=== PATIENT | female | born 1935 | race Caucasian/White ===

== ENCOUNTER 2017-05-13 08:03 | Inpatient (IN) | payer MEDICARE, OTHER ==
[~2017-05-13] VITALS: Ht 124.5 cm; Wt 55.0 kg
[2017-05-13] VITALS (8 sets, daily range): BP systolic 98–204; BP diastolic 54–86; PULSE 69–73; RESP 18; Ht 124.5 cm; Wt 55.0 kg
[~2017-05-13 08:03] MED LIST: ATOR40TA21 PO; CLOP75TA19 PO; DID NOT BRING MEDS; ESCI10TA PO; FENO135C3 PO; FERR-55 PO; GLIM4TAB55 PO; MONT10TA21 PO; NABU-137 PO
[2017-05-13] MEDS ORDERED: DEXTROSE 50% 50 ML SYRINGE IV STA ×2 (08:05→09:50)
[2017-05-13] MEDS ORDERED: OCTREOTIDE 50 MCG INJ SC STA (08:12)
--- NOTE | 2017-05-13 08:51 | RADRPT ---
PROCEDURE: CT Brain without contrast. CLINICAL INDICATION: Altered mental status TECHNIQUE: Routine CT scan of the brain was performed on a high resolution multi detector scanner without intravenous contrast. One or more of the following dose reduction techniques were used: Auto mated exposure control; Adjustment of the mA and/or kV according to patient size; Use of iterative r econstruction technique. CTDI = 44 mGy. DLP = 630 mGy-cm. DICOM images are available. COMPARISON: No prior relevant examinations are available for comparison. FINDINGS: Hemorrhage: No evidence of intracranial hemorrhage. Acute ischemic changes: No evidence of acute ischemic changes. Mass effect: None. Parenchymal volume: Mild central parenchymal volume loss is evident. Ventricular system: Concordant with parenchymal volume. Chronic changes: There are multiple areas of low attenuation change within the supratentorial white matter most compatible with moderate chronic microvascular ischemic changes. Atherosclerotic calcifications of the cavernous portions of both internal carotid arteries are prese nt. Extracranial soft tissues: Unremarkable. Calvarium: No fractures. Paranasal sinuses: Visualized paranasal sinuses are clear. Mastoid air cells: Visualized mastoid air cells are clear. IMPRESSION: No acute intracranial abnormalities. Moderate chronic-appearing microvascular ischemic changes of the supratentorial white matter. MRI of the brain recommended for further evaluation. RPTAT: AADD .Librado Burns MD, MD Date Time Electronically viewed and signed by .Librado Burns MD, MD on 05/13/2017 08:51 .B/
--- NOTE | 2017-05-13 09:18 | RADRPT ---
PROCEDURE: XR Chest. CLINICAL INDICATION: Dyspnea. TECHNIQUE: XR CHEST AP PORTABLE COMPARISON: None available. FINDINGS: The interstitial lung markings are mildly diffusely prominent. Otherwise, the are clear. No focal o pacification is seen. No pneumothorax or pleural effusion is seen. Aortic atherosclerotic calcific ations are present. Otherwise, the cardiomediastinal silhouette is unremarkable. Chronic displaced fracture of the proximal left humeral shaft is noted. Otherwise, the osseous structures are grossly unremarkable. IMPRESSION: 1. Diffusely prominent interstitial lung markings, may represent mild edema, atypical infection, or chronic interstitial lung change. 2. Aortic atherosclerosis. RPTAT: JJ .Wong Foster MD, MD Date Time Electronically viewed and signed by .Wong Foster MD, on 05/13/2017 09:17 .A/
[2017-05-13] MEDS ORDERED: ROSU5TAB8 PO (09:29)
[2017-05-13] MEDS ORDERED: LORA0.5T PO (09:30)
[2017-05-13] MEDS ORDERED: AMLO5TAB4 PO (09:30)
[2017-05-13] MEDS ORDERED: METO-429 PO (09:31)
[2017-05-13] MEDS ORDERED: LOSA50TA6 PO (09:31)
[2017-05-13] MEDS ORDERED: SITA1TAB5 PO (09:32)
[2017-05-13] MEDS ORDERED: INSU100I31 SUBCUTANE (09:32)
[2017-05-13] MEDS ORDERED: DEXTROSE 5%-0.9% NACL 1,000 ML IV STA (09:50)
[2017-05-13 10:13] LABS: ADD UMIC YES; UR ASCORBIC ACID NEGATIVE (NEGATIVE); UR BILIRUBIN (Dip) NEGATIVE (NEGATIVE); UR BLOOD (Dip) NEGATIVE (NEGATIVE); UR CLARITY CLEAR (CLEAR); UR COLOR STRAW (YELLOW); UR GLUCOSE (Dip) NEGATIVE (NEGATIVE); UR KETONES (Dip) NEGATIVE (NEGATIVE); UR LEUKOCYTE ESTERASE (Dip) 1+ Leu/ul (NEGATIVE); UR NITRITE (Dip) NEGATIVE (NEGATIVE); UR RBC 1 /HPF (0-5); UR SPECIFIC GRAVITY (Dip) 1.005 (1.003-1.030); UR SQUAMOUS EPITHELIAL CELL FEW /HPF (FEW); UR TOTAL PROTEIN (Dip) 1+ mg/dl (NEGATIVE); UR UROBILINOGEN (Dip) NEGATIVE (NEGATIVE)
[2017-05-13 11:54] LABS: BASOPHIL # 0.1 10^3/ul (0.0-0.1); BASOPHILS % 0.4 % (0.0-2.0); EOSINOPHILS # 0.1 10^3/ul (0.0-0.5); EOSINOPHILS % 0.7 % (0.0-7.0); HEMATOCRIT 37.9 % (37.0-47.0); HEMOGLOBIN 12.8 g/dl (12.0-16.0); LYMPHOCYTES % 20.1 % (15.0-51.0); MEAN CORPUSCULAR HEMOGLOBIN 28.6 pg (29.0-33.0); MEAN CORPUSCULAR HGB CONC 33.8 g/dl (32.0-37.0); MEAN CORPUSCULAR VOLUME 84.6 fl (82.0-101.0); MEAN PLATELET VOLUME 10.5 fl (7.4-10.4); MONOCYTE # 0.6 10^3/ul (0.3-0.9); MONOCYTES % 3.7 % (0.0-11.0); NEUTROPHIL # 11.1 10^3/ul (1.6-7.5); NEUTROPHILS % 74.7 % (39.0-77.0); PLATELET COUNT 330 10^3/UL (140-415); RED BLOOD COUNT 4.48 10^6/ul (4.20-5.40); RED CELL DISTRIBUTION WIDTH 14.6 % (11.5-14.5); WHITE BLOOD COUNT 14.8 10^3/ul (4.8-10.8)
[2017-05-13 12:17] LABS: ANION GAP 17 (8-16); BLOOD UREA NITROGEN 29 mg/dl (7-20); CALCIUM 9.7 mg/dl (8.4-10.2); CARBON DIOXIDE 26 mmol/L (21-31); CHLORIDE 95 mmol/L (97-110); CREATININE 1.16 mg/dl (0.44-1.00); GLUCOSE 170 mg/dl (70-220); POTASSIUM 5.3 mmol/L (3.5-5.1); SODIUM 133 mmol/L (135-144)
[2017-05-13] MEDS ORDERED: ACETAMINOPHEN 325 MG TAB PO PRN (12:30)
[2017-05-13] MEDS ORDERED: ONDANSETRON 4 MG INJ IV PRN (12:30)
[2017-05-13 12:32] LABS: TROPONIN-I < 0.012 ng/ml (0.00-0.12)
[2017-05-13 12:35] LABS: T3 UPTAKE 30.5 % (23.5-40.5)
--- NOTE | 2017-05-13 14:33 | ERD ---
ER Documentation Chief Complaint Chief Complaint BIB RA 39 FOR EVAL OF HYPOGLYCEMIA GLUCAGON BY EMS HPI This is an 81-year-old female, who lives alone, history of insulin dependent diabetes who presents with hypoglycemia and altered mental status. She was altered upon EMS arrival with glucose in the 30s. She did not get access and was given glucagon with response. Upon arrival the patient is alert and conversive. The patient has a history of dementia and does not know her medications. Her son arrives and states that she does live alone but has a home health care provider until 8 PM every day. He states that she does not give herself her medications but there are some medications in the home. Patient denies any chest pain shortness of breath. No fevers or chills. ROS All systems reviewed and are negative except as per history of present illness. Medications Home Meds Reported Medications Sitagliptin Phos/Metformin HCl (Janumet 50-1,000 mg Tablet) 1 Each Tablet, 1 TAB PO BID, #60 05/13/17 Insulin Degludec (Tresiba Flextouch U-100) 100 Unit/1 Ml Insuln.pen, 0 SUBCUTANE AC BREAKFAST, #15 05/13/17 Losartan Potassium* (Losartan Potassium*) 50 Mg Tablet, 50 MG PO DAILY, TAB 05/13/17 Metoprolol Tartrate* (Lopressor*) 50 Mg Tab, 50 MG PO BID, #60 05/13/17 Amlodipine Besylate* (Norvasc*) 5 Mg Tablet, 5 MG PO DAILY, TAB 05/13/17 Lorazepam* (Lorazepam*) 0.5 Mg Tablet, 0.5 MG PO DAILY for ANXIETY, #30 05/13/17 Rosuvastatin Calcium (Rosuvastatin Calcium) 5 Mg Tablet, 5 MG PO QHS, #30 17 Clopidogrel Bisulfate (Plavix) 75 Mg Tablet, 75 MG PO DAILY 02/06/11 Escitalopram Oxalate* (Lexapro*) 10 Mg Tablet, 10 MG PO DAILY 02/06/11 Discontinued Reported Medications Glimepiride* (Amaryl*) 4 Mg Tablet, 4 MG PO DAILY 02/06/11 Montelukast Sodium* (Singulair*) 10 Mg Tablet, 10 MG PO DAILY 02/06/11 Atorvastatin (Lipitor) 40 Mg Tablet, 40 MG PO DAILY 02/06/11 Nabumetone* (Relafen*) 750 Mg Tablet, 750 MG PO BID 02/06/11 Ferrous Sulfate* (Ferrous Sulfate*) 325 Mg Tablet, 325 MG PO TID 02/06/11 Fenofibric Acid (Choline) (Trilipix) 135 Mg Capsule.dr, 135 MG PO DAILY 02/06/11 [Did Not Bring Meds] No Conflict Check 02/06/11 Allergies Allergies: Coded Allergies: No Known Allergy (Verified , 05/13/17) PMhx/Soc History of Surgery: No Anesthesia Reaction: No Hx Neurological Disorder: No Hx Respiratory Disorders: No Hx Cardiac Disorders: No Hx Psychiatric Problems: No Hx Miscellaneous Medical Probl: Yes (UTI, DM, hnt) Hx Alcohol Use: No Hx Substance Use: No Hx Tobacco Use: No Smoking Status: Never smoker FmHx Family History: diabetes Physical Exam Vitals Vital Signs Date Time Temp Pulse Resp B/P Pulse Ox O2 Delivery O2 Flow Rate FiO2 05/13/17 11:51 73 32 165/62 100 Room Air 05/13/17 08:06 97.9 88 16 170/80 99 Physical Exam General: Well developed, well nourished, no acute distress Head: Normocephalic, atraumatic. Eyes: Pupils equally reactive, EOM intact ENT: Moist mucous membranes Neck: Supple, no lymphadenopathy Respiratory: Lungs clear bilaterally, no distress Cardiovascular: RRR, no murmurs, rubs, or gallops Abdominal: Soft, non-tender, non-distended, no peritoneal signs : Deferred MSK: No edema, no unilateral swelling, 5/5 strength Neurologic: Alert and oriented, moving all extremities, normal speech, no focal weakness, no cerebellar signs Skin: No rash Psych: Normal mood Result Diagram: 05/13/17 1109 05/13/17 1110 Results 24 hrs Laboratory Tests Test 05/13/17 08:09 05/13/17 09:38 05/13/17 09:45 05/13/17 10:45 Bedside Glucose 64mg/dL 50mg/dL 178mg/dL Urine Color STRAW Urine Clarity CLEAR Urine pH 7.0 Urine Specific [place] 1.005 Urine Ketones NEGATIVEmg/dL Urine Nitrite NEGATIVEmg/dL Urine Bilirubin NEGATIVEmg/dL Urine Urobilinogen NEGATIVEmg/dL Urine Leukocyte Esterase 1+Randi/ul Urine Microscopic RBC 1/HPF Urine Microscopic WBC 17/HPF Urine Squamous Epithelial Cells FEW/HPF Urine Hemoglobin NEGATIVEmg/dL Urine Glucose NEGATIVEmg/dL Urine Total Protein 1+mg/dl Test 05/13/17 11:09 05/13/17 11:10 05/13/17 12:07 White Blood Count 14.810^3/ul Red Blood Count 4.4810^6/ul Hemoglobin 12.8g/dl Hematocrit 37.9% Mean Corpuscular Volume 84.6fl Mean Corpuscular Hemoglobin 28.6pg Mean Corpuscular Hemoglobin Concent 33.8g/dl Red Cell Distribution Width 14.6% Platelet Count 14539^3/UL Mean Platelet Volume 10.5fl Neutrophils % 74.7% Lymphocytes % 20.1% Monocytes % 3.7% Eosinophils % 0.7% Basophils % 0.4% Nucleated Red Blood Cells % 0.0/100WBC Neutrophils # 11.110^3/ul Lymphocytes # 3.010^3/ul Monocytes # 0.610^3/ul Eosinophils # 0.110^3/ul Basophils # 0.110^3/ul Nucleated Red Blood Cells # 0.010^3/ul Sodium Level 133mmol/L Potassium Level 5.3mmol/L Chloride Level 95mmol/L Carbon Dioxide Level 26mmol/L Anion Gap 17 Blood Urea Nitrogen 29mg/dl Creatinine 1.16mg/dl Glucose Level 170mg/dl Calcium Level 9.7mg/dl Troponin I < 0.012ng/ml Free Thyroxine Index 2.14ug/ml Thyroxine (T4) 7.0ug/dl Triiodothyronine (T3) Uptake 30.5% Bedside Glucose 156mg/dL Current Medications Medications (Trade) Dose Ordered Sig/Krystina Route PRN Reason Start Time Stop Time Status Last Admin Dose Admin Dextrose (D50w Syringe) 50 ml ONCE STAT IV 05/13/17 08:05 05/13/17 08:12 DC 05/13/17 10:02 Octreotide Acetate (Sandostatin) 50 mcg ONCE STAT SC 05/13/17 08:12 05/13/17 08:13 DC 05/13/17 10:17 Dextrose 50 ml 50 ml ONCE STAT IV 05/13/17 09:50 05/13/17 09:52 DC 05/13/17 10:06 Dextrose/Sodium Chloride (D5-NS) 1,000 ml @ 200 mls/hr Q5H STAT IV 05/13/17 09:50 05/13/17 14:49 05/13/17 10:06 Ondansetron HCl (Zofran Inj) 4 mg ER BRIDGE PRN IV NAUSEA AND/OR VOMITING 05/13/17 12:30 05/14/17 12:29 Acetaminophen (Tylenol Tab) 650 mg ER BRIDGE PRN PO MILD PAIN/FEVER 05/13/17 12:30 05/14/17 12:29 Procedures/MDM EKG, MONITORS, & DIAGNOSTIC IMAGING: EKG: I reviewed and interpreted a 12-lead EKG. Rhythm: Normal sinus rhythm Ectopy: None Intervals: No abnormalities ST segments: No elevations or depressions T waves: No contiguous inversions Chest x-ray: I reviewed and interpreted a 1 view of the chest Mediastinum: No enlargement Cardiac silhouette: No cardiomegaly Airspace: Clear lung mejia bilaterally without evidence of pneumothorax Bones: No evidence of fracture CT brain: No evidence of acute intracranial process per radiologist LAB INTERPRETATION: Slight and nonspecific leukocytosis, normal hemoglobin, the patient has multiple episodes of hypoglycemia, mild renal insufficiency, mild hyperkalemia 5.3 without EKG changes, negative troponin MEDICAL DECISION MAKING: The patient presents with hypoglycemia that is idiopathic. The patient may have a potential UTI and was given Keflex. No evidence of sepsis. The patient had multiple episodes of slight hypoglycemia despite given dextrose in the ER. For this reason I would recommend hospitalization. ER COURSE: Patient had persistent hypoglycemia. She was given 2 Amp of dextrose and initiated on dextrose infusion. She was given octreotide given that she takes a sulfonylurea. She does have evidence of mild UTI and was given Keflex. Regardless, the patient has returned to baseline and is mentating well. The patient has had stable glucose values and I believe is stable for telemetry with every 2 hour glucose values. She was given a complex carbohydrate meal. I kept the patient and/or family informed of laboratory and diagnostic imaging results throughout the emergency room course. DISPOSITION PLAN: Telemetry admission CONSULTATION: Accepting care team and consultations: I discussed the current laboratory data, diagnostic imaging and emergency care provided. Admitting team: Dr. Franklin, primary care physician Admitting team indication: Insurance directed Departure Diagnosis: Primary Impression: Hypoglycemia Additional Impressions: Acute encephalopathy Urinary tract infection Urinary tract infection type: acute cystitis Hematuria presence: without hematuria Qualified Code: N30.00 - Acute cystitis without hematuria Acute renal insufficiency Condition: Stable LUDY BURKETT MD May 13, 2017 14:33
[2017-05-13] MEDS ORDERED: CEPHALEXIN 500 MG CAP PO ONE (15:00)
[2017-05-13] MEDS ORDERED: D5-NS + KCL 20 MEQ 1,000 ML IV SCH (17:00)
[2017-05-13] MEDS ORDERED: DEXTROSE 5%-0.9% NACL 1,000 ML IV SCH (17:30)
[2017-05-13] MEDS ORDERED: DEXTROSE 50% 50 ML SYRINGE IV PRN ×2 (17:30)
[2017-05-13] MEDS ORDERED: GLUCAGON 1 MG INJ IM PRN (17:30)
[2017-05-13] MEDS ORDERED: GLUCOSE GEL 15 GRAM TUBE BUCCAL PRN (17:30)
[2017-05-13] MEDS ORDERED: GLUCOSE GEL 15 GRAM TUBE PO PRN ×2 (17:30)
[2017-05-13] MEDS: CLOPIDOGREL 75 MG TAB PO SCH (17:55)
[2017-05-13] MEDS: LOSARTAN 50 MG TAB PO SCH (17:56)
[2017-05-13] MEDS: ESCITALOPRAM 10 MG TAB PO SCH (17:56)
[2017-05-13] MEDS: LORAZEPAM 0.5 MG TAB PO SCH (17:56)
[2017-05-13] MEDS: INSULIN ASPART [NOVOLOG] 3 ML PEN SC SCH ×2 (18:05→20:56)
--- NOTE | 2017-05-13 19:54 | HP ---
DATE OF ADMISSION: 05/13/2017 HISTORY OF PRESENT ILLNESS: The patient was admitted for acute hypoglycemia, hyperkalemia and dehyd ration. The patient is a known patient to me for many years with history of type 2 diabetes mellitu s, hypertension, degenerative joint disease, encephalopathy, dyslipidemia and advanced dementia. MEDICATIONS: The patient is on multiple medications at home which are as follows: 1. Plavix 75 once a day. 2. Amlodipine 5 once a day. 3. Losartan 50 twice a day. 4. Metoprolol 50 twice a day. 5. Rosuvastatin 5 mg once a day. The patient usually is home alone with a caregiver, and she goes to a daycare. Apparently, today carolina weir had low levels of blood sugar, altered and that is why she was brought into the emergency room. ALLERGIES: THE PATIENT HAS NO KNOWN ALLERGIES. PAST SURGICAL HISTORY: Unknown to me at this time or no surgical history. REVIEW OF SYSTEMS: The patient is confused, unable to get much information from the patient. When you ask her, everything is okay with her, but according to the emergency room doctor, the patient ca me hypoglycemic, had to give a few times dextrose and her blood sugar levels are much better now, so she was brought in to [facility] for observation. PHYSICAL EXAMINATION: VITAL SIGNS: Blood pressure at this time is 165/62, heart rate is 72, respiratory rate 18. She is afebrile. HEENT: Head is atraumatic, normocephalic. Pupils are equal and reactive to light. Extraocular mus cles are intact. Nares are clear. No obstruction, no deviation of the septum. Oral cavity: Hermila l oral hygiene. Ear canals are clear. No signs of inflammation or infection. Tympanic membranes a re intact. NECK: Supple. No JVD. No surgical scars. No lymph nodes palpable over the neck. CHEST: AP contour is within normal limits. BREASTS: Breasts and nipples are normal. No nipple retraction. HEART: S1, S2, regular rate and rhythm with a systolic murmur over the apex. LUNGS: Clear to auscultation. Very mild scattered rhonchi over the lungs. Poor effort. ABDOMEN: Soft, positive bowel sounds, no hepatosplenomegaly, no masses palpable over the abdomen an d no rebound tenderness. EXTREMITIES: No edema, clubbing or cyanosis of the extremities. Pulses are palpable. NEUROLOGIC: Cranial nerves II-XII are completely intact. No focal deficits. ADMITTING DIAGNOSES: 1. Hypoglycemia. 2. Hyponatremia. 3. Hyperkalemia. 4. Possible urinary tract infection. 5. Mild dehydration. PLAN: The patient will be admitted to [facility]. Will start her on IV fluid. Monitor the blood sugars. Her most recent lab results: Sodium is 133, which is her baseline, potassium 5.3, a little elevat ed, BUN is 29, creatinine 1.16 and glucose at this time is 170. CBC: White blood cells 14.8, hemog lobin 12.8, hematocrit 37.9 and platelet count 330. Urine is negative at this time. Therefore, we will start the patient on IV fluid and will monitor. Dictated By: RONDA MCALLISTER MD SB/NTS Conf#: [id number] DID#: [id number] CC: RONDA MCALLISTER MD;*EndCC*
[2017-05-13] MEDS ORDERED: ATORVASTATIN 10 MG TAB GTB SCH (21:00)
[2017-05-13] MEDS: METOPROLOL 50 MG TAB PO SCH (22:28)
[2017-05-14] VITALS (7 sets, daily range): BP systolic 92–135; BP diastolic 50–62; PULSE 59–64; RESP 18–19
[2017-05-14] MEDS ORDERED: ACCU-CHEK XX SCH (02:00)
[2017-05-14] MEDS ORDERED: PANTOPRAZOLE (EC) 40 MG TAB PO SCH (06:00)
[2017-05-14] MEDS: INSULIN ASPART [NOVOLOG] 3 ML PEN SC SCH (08:00)
[2017-05-14 08:43] LABS: BASOPHIL # 0.1 10^3/ul (0.0-0.1); BASOPHILS % 0.8 % (0.0-2.0); EOSINOPHILS # 0.3 10^3/ul (0.0-0.5); EOSINOPHILS % 2.7 % (0.0-7.0); HEMOGLOBIN 11.1 g/dl (12.0-16.0); LYMPHOCYTES # 3.6 10^3/ul (0.8-2.9); LYMPHOCYTES % 39.3 % (15.0-51.0); MEAN CORPUSCULAR HEMOGLOBIN 28.8 pg (29.0-33.0); MEAN CORPUSCULAR HGB CONC 33.6 g/dl (32.0-37.0); MEAN CORPUSCULAR VOLUME 85.7 fl (82.0-101.0); MEAN PLATELET VOLUME 10.4 fl (7.4-10.4); MONOCYTE # 0.8 10^3/ul (0.3-0.9); MONOCYTES % 8.6 % (0.0-11.0); NEUTROPHIL # 4.5 10^3/ul (1.6-7.5); NEUTROPHILS % 48.4 % (39.0-77.0); PLATELET COUNT 295 10^3/UL (140-415); RED BLOOD COUNT 3.85 10^6/ul (4.20-5.40); RED CELL DISTRIBUTION WIDTH 15.1 % (11.5-14.5); WHITE BLOOD COUNT 9.2 10^3/ul (4.8-10.8)
[2017-05-14] MEDS: LORAZEPAM 0.5 MG TAB PO SCH (09:00)
[2017-05-14] MEDS ORDERED: AMLODIPINE 5 MG TAB PO SCH (09:00)
[2017-05-14 09:11] LABS: CALCIUM 9.2 mg/dl (8.4-10.2); CREATININE 1.22 mg/dl (0.44-1.00); POTASSIUM 4.6 mmol/L (3.5-5.1)
[2017-05-14] MEDS: CLOPIDOGREL 75 MG TAB PO SCH (10:33)
[2017-05-14] MEDS: ESCITALOPRAM 10 MG TAB PO SCH (10:33)
[2017-05-14] MEDS: LOSARTAN 50 MG TAB PO SCH (10:34)
[2017-05-14] MEDS: METOPROLOL 50 MG TAB PO SCH (10:34)
--- NOTE | 2017-05-18 22:07 | DS ---
DATE OF ADMISSION: 05/13/2017 DATE OF DISCHARGE: 05/14/2017 HISTORY OF PRESENT ILLNESS: The patient was admitted for hypoglycemia, for observation. Patient is a known patient to me for many years with history of diabetes mellitus, hypertension, advanced amber ntia, encephalopathy, osteoarthritis and hyponatremia and hypokalemia. Patient came in again to the emergency room with low blood sugar levels. She was given glucose, tolerated the treatment, admitt ed to med/surg floor for further evaluation and treatment. During the stay in the hospital, her blo od sugar was maintained, controlled. Due to her advanced dementia and confusion, per request of the family, of the sons, had long discussions with them, they wanted the mother to go back home to [facility] closely with the blood sugar levels, as the patient also has home care visits at home. Therefor e, on 05/14/2017, discharged the patient home in stable condition, blood sugar stable, to follow up closely and be in touch with me for further treatment. DISCHARGE DIAGNOSES: 1. Hypoglycemia, resolved. 2. Insulin-dependent diabetes mellitus. 3. Advanced dementia. 4. Encephalopathy. 5. Hypokalemia. 6. Hyponatremia. 7. Possible urinary tract infection. Dictated By: RONDA QUIÑONEZ/CAMERON Conf#: [id number] DID#: [id number]
== END 2017-05-14 11:39 | disposition home or self-care (01) | DRG 637 ==
LOC: E/R 08:03 → MS4 12:30
PROVIDERS: ADMIT Family Medicine; ATTEND Family Medicine
DX: E11.649 Type 2 diabetes mellitus with hypoglycemia without coma (principal); G93.40 Encephalopathy, unspecified; E87.5 Hyperkalemia; N39.0 Urinary tract infection, site not specified; E86.0 Dehydration; E87.1 Hypo-osmolality and hyponatremia; N28.9 Disorder of kidney and ureter, unspecified
CPT/HCPCS: 36415; 70450; 71010; 80048; 81001; 82947; 82962; 83880; 84436; 84479; 84484; 85025; 87086; 93005; 96372; 96374; J1815; J2405; J3480; J7042

== ENCOUNTER 2018-08-05 10:20 | Inpatient (IN) | payer MEDICARE, OTHER ==
[~2018-08-05] VITALS: Ht 152.4 cm; Wt 45.5 kg
[~2018-08-05 10:20] MED LIST changes: +AMLO5TAB4 PO; -ATOR40TA21 PO; -DID NOT BRING MEDS; -FENO135C3 PO; -FERR-55 PO; -GLIM4TAB55 PO; +LOSA50TA14 PO; +METO-429 PO; -MONT10TA21 PO; -NABU-137 PO; +ROSU5TAB11 PO; +SITA1TAB5 PO
[2018-08-05] MEDS ORDERED: SOD CHLORIDE 0.9% 1,000 ML IV STA (10:32)
[2018-08-05] MEDS ORDERED: CEFTRIAXONE 1 GM/50 ML (PMX) 50 ML IVPB ONE (12:30)
--- NOTE | 2018-08-05 13:06 | ERD ---
ER Documentation Chief Complaint Chief Complaint Nausea vomiting with generalized body ache HPI 83-year-old female who presents to the emergency room complaining of generalized weakness and nausea and vomiting. The patient describes at least several weeks of similar symptoms. However the past 24 hours the patient has had one episode of nonbloody nonbilious emesis. The patient is describing diffuse body aches and fatigue. The patient does live home alone and has family members who check on her regularly but is having increasing difficulty ambulating, getting to the bathroom and feeding herself. During the patient's encounter translation services were utilized Language: Aremenian Source: Family in person ROS All systems reviewed and are negative except as per history of present illness. Medications Home Meds Reported Medications Sitagliptin Phos/Metformin HCl (Janumet 50-1,000 mg Tablet) 1 Each Tablet, 1 TAB PO BID, #60 05/13/17 Losartan Potassium* (Losartan Potassium*) 50 Mg Tablet, 50 MG PO DAILY, TAB 05/13/17 Metoprolol Tartrate* (Lopressor*) 50 Mg Tab, 50 MG PO BID, #60 05/13/17 Amlodipine Besylate* (Norvasc*) 5 Mg Tablet, 5 MG PO DAILY, TAB 05/13/17 Rosuvastatin Calcium (Rosuvastatin Calcium) 5 Mg Tablet, 5 MG PO QHS, #30 05/13/17 Clopidogrel Bisulfate (Plavix) 75 Mg Tablet, 75 MG PO DAILY 02/06/11 Escitalopram Oxalate* (Lexapro*) 10 Mg Tablet, 10 MG PO DAILY 02/06/11 Allergies Allergies: Coded Allergies: No Known Allergy (Verified , 05/13/17) PMhx/Soc History of Surgery: No Anesthesia Reaction: No Hx Neurological Disorder: No Hx Respiratory Disorders: No Hx Cardiac Disorders: Yes (HTN) Hx Psychiatric Problems: No Hx Miscellaneous Medical Probl: Yes (DM) Hx Alcohol Use: No Hx Substance Use: No Hx Tobacco Use: No Smoking Status: Never smoker FmHx Family History: No diabetes Physical Exam Vitals Vital Signs Date Temp Pulse Resp B/P (MAP) Pulse Ox O2 O2 Flow FiO2 Time Delivery Rate 08/05/18 98 20 158/69 99 Room Air 13:04 (98) 08/05/18 97.7 97 20 190/98 99 Room Air 11:55 (128) 08/05/18 97.8 96 18 147/75 98 10:34 (99) Physical Exam General: Well developed, well nourished, no acute distress Head: Normocephalic, atraumatic. Eyes: Pupils equally reactive, EOM intact ENT: Dry mucous membranes Neck: Supple, no lymphadenopathy Respiratory: Lungs clear bilaterally, no distress Cardiovascular: RRR, no murmurs, rubs, or gallops Abdominal: Soft, non-tender, non-distended, no peritoneal signs : Deferred MSK: No edema, no unilateral swelling, 5/5 strength Neurologic: Alert and oriented, moving all extremities, normal speech, no focal weakness, no cerebellar signs Skin: No rash Psych: Normal mood Result Diagram: 08/05/18 1035 08/05/18 1035 Results 24 hrs Laboratory Tests Test 08/05/18 10:35 08/05/18 11:46 White Blood Count 8.9 10^3/ul Red Blood Count 3.97 10^6/ul Hemoglobin 11.4 g/dl Hematocrit 33.9 % Mean Corpuscular Volume 85.4 fl Mean Corpuscular Hemoglobin 28.7 pg Mean Corpuscular Hemoglobin Concent 33.6 g/dl Red Cell Distribution Width 13.8 % Platelet Count 386 10^3/UL Mean Platelet Volume 9.7 fl Immature Granulocytes % 0.400 % Neutrophils % 55.3 % Lymphocytes % 32.1 % Monocytes % 9.8 % Eosinophils % 1.7 % Basophils % 0.7 % Nucleated Red Blood Cells % 0.0 /100WBC Immature Granulocytes # 0.040 10^3/ul Neutrophils # 4.9 10^3/ul Lymphocytes # 2.9 10^3/ul Monocytes # 0.9 10^3/ul Eosinophils # 0.2 10^3/ul Basophils # 0.1 10^3/ul Nucleated Red Blood Cells # 0.0 10^3/ul Sodium Level 132 mmol/L Potassium Level 5.3 mmol/L Chloride Level 96 mmol/L Carbon Dioxide Level 21 mmol/L Anion Gap 15 Blood Urea Nitrogen 26 mg/dl Creatinine 1.72 mg/dl Est Glomerular Filtrat Rate mL/min mL/min Glucose Level 186 mg/dl Calcium Level 10.0 mg/dl Total Bilirubin 0.0 mg/dl Direct Bilirubin 0.00 mg/dl Indirect Bilirubin 0.0 mg/dl Aspartate Amino Transf (AST/SGOT) 21 IU/L Alanine Aminotransferase (ALT/SGPT) 8 IU/L Alkaline Phosphatase 60 IU/L Troponin I 0.023 ng/ml Total Protein 8.3 g/dl Albumin 4.4 g/dl Globulin 3.90 g/dl Albumin/Globulin Ratio 1.12 Free Thyroxine Index 3.28 ug/ml Thyroxine (T4) 8.9 ug/dl Triiodothyronine (T3) Uptake 36.9 % Urine Color RED Urine Clarity CLOUDY Urine pH 5.0 Urine Specific [place] 1.009 Urine Ketones NEGATIVE mg/dL Urine Nitrite NEGATIVE mg/dL Urine Bilirubin NEGATIVE mg/dL Urine Urobilinogen NEGATIVE mg/dL Urine Leukocyte Esterase 3+ Randi/ul Urine Microscopic RBC 4 /HPF Urine Microscopic WBC > 182 /HPF Urine Squamous Epithelial Cells MODERATE /HPF Urine Bacteria MODERATE /HPF Urine Mucus FEW /HPF Urine Yeast (Budding) FEW /HPF Urine Hemoglobin 3+ mg/dL Urine Glucose 3+ mg/dL Urine Total Protein 2+ mg/dl Current Medications Medications Dose Sig/Krystina Start Time Status Last (Trade) Ordered Route PRN Stop Time Admin Dose Reason Admin Sodium 1,000 ml @ Q1H STAT 08/05/18 DC 08/05/18 Chloride 1,000 mls/hr IV 10:32 08/05/18 10:32 11:31 Ceftriaxone 50 ml @ ONCE ONCE 08/05/18 DC 08/05/18 Sodium 100 mls/hr IVPB 12:30 08/05/18 12:40 12:59 Procedures/MDM EKG, MONITORS, & DIAGNOSTIC IMAGING: EKG: I reviewed and interpreted a 12-lead EKG. Rhythm: Normal sinus rhythm ST Changes: No contiguous ST segment elevations T waves: No contiguous T wave inversions Impression: [No evidence of acute cardiac ischemia] CXR IMPRESSION: Bibasilar atelectasis with a possible small developing left lower lobe infiltrate. RPTAT: TT CT brain IMPRESSION: 1. No evidence of acute intracranial pathology. 2. Mild-moderate diffuse atrophy. 3. There is moderate microvascular ischemic disease in the periventricular and deep white matter. LAB INTERPRETATION: I reviewed the laboratory testing and it shows UTI, renal insufficiency MEDICAL DECISION MAKING: The patient presents to the emergency room with generalized weakness. A very broad differential exists given the patient's age. The other concern is that the patient is having increasing difficulty caring for activities of daily living at home. I believe increased home health resources are necessary. The patient will have broad workup including evaluation for infection and/or infarction. Low threshold for hospitalization. ER COURSE: * Chest x-ray read by the radiologist as possible early developing pneumonia but the patient has no cough no shortness breath no hypoxia. Low concern for pneumonia. No indication for antibiotics. * UTI noted with evidence of urinary retention likely secondary to UTI. A Amaya catheter was inserted with greater than 300 cc output. * Patient was given a first dose of ceftriaxone. * Initial plan was for discharge with the patient's family member is very concerned that she is having difficulty caring for herself at home. For this reason I believe it would be appropriate for inpatient hospitalization and social science instructor consultation for home health services. CONSULTATION: [None] DISPOSITION PLAN: Accepting care team and consultations: I discussed the current laboratory data, diagnostic imaging and emergency care provided. Admitting team: Primary care physician Dr. Franklin Admitting team indication: Insurance directed Departure Diagnosis: Primary Impression: Nausea and vomiting Vomiting type: unspecified Vomiting Intractability: non-intractable Qualified Codes: R11.2 - Nausea with vomiting, unspecified Additional Impressions: Urinary tract infection Urinary tract infection type: acute cystitis Hematuria presence: without hematuria Qualified Codes: N30.00 - Acute cystitis without hematuria Urinary retention Generalized weakness Acute renal insufficiency Dehydration, mild Condition: Stable LUDY BURKETT MD Aug 05, 2018 13:06
[2018-08-05] MEDS ORDERED: ONDANSETRON 4 MG INJ IV PRN (14:00)
[2018-08-05] MEDS ORDERED: ACETAMINOPHEN 325 MG TAB PO PRN (14:00)
[2018-08-05] MEDS ORDERED: FAMO40TA5 PO (15:44)
[2018-08-05] MEDS ORDERED: FER325 PO (15:44)
[2018-08-05] MEDS ORDERED: CANA100T PO (15:45)
[2018-08-05] MEDS ORDERED: HYDR25TA6 PO (15:45)
[2018-08-05] MEDS ORDERED: LORA0.5T PO (15:46)
[2018-08-05] MEDS ORDERED: METO-319 PO (15:47)
[2018-08-05] MEDS ORDERED: OLAN2.5T28 PO (15:47)
[2018-08-05] MEDS ORDERED: ACET-141 PO (15:48)
[2018-08-05] MEDS ORDERED: DICL100G37 TOP (15:48)
[2018-08-05] MEDS ORDERED: LOSA50TA14 PO (15:53)
[2018-08-05] MEDS ORDERED: EMPA1TAB9 PO (15:54)
[2018-08-05] MEDS ORDERED: EXEN2PEN SQ (15:54)
[2018-08-05] MEDS ORDERED: MIRA50TA PO (15:55)
[2018-08-05 17:51] VITALS: BP 117/62; PULSE 89; RESP 19
[2018-08-05 17:56] VITALS: Ht 152.4 cm; Wt 45.5 kg
[2018-08-05] MEDS ORDERED: GLUCAGON 1 MG INJ IM PRN (18:30)
[2018-08-05] MEDS ORDERED: DEXTROSE 50% 50 ML SYRINGE IV PRN ×2 (18:30)
[2018-08-05] MEDS ORDERED: ACETAMINOPHEN 500 MG TAB PO PRN (18:30)
[2018-08-05] MEDS ORDERED: GLUCOSE GEL 15 GRAM TUBE PO PRN ×2 (18:30)
[2018-08-05] MEDS ORDERED: LORAZEPAM 0.5 MG TAB PO PRN (18:30)
[2018-08-05] MEDS ORDERED: GLUCOSE GEL 15 GRAM TUBE BUCCAL PRN (18:30)
[2018-08-05] MEDS: SOD CHLORIDE 0.45% 1,000 ML IV SCH (19:07)
[2018-08-05 19:36] VITALS: BP 117/62; PULSE 102; RESP 16
[2018-08-05] MEDS: FAMOTIDINE 20 MG TAB PO SCH (20:46)
[2018-08-05] MEDS: FERROUS SULFATE (EC) 325 MG TAB PO SCH (20:46)
[2018-08-05] MEDS: INSULIN ASPART [NOVOLOG] 3 ML PEN SC SCH (20:46)
[2018-08-05] MEDS: CEFTRIAXONE 1 GM/50 ML (PMX) 50 ML IVPB SCH (21:49)
[2018-08-06 01:32] VITALS: BP 117/58; PULSE 94; RESP 16
[2018-08-06] MEDS: ACCU-CHEK XX SCH (02:00)
[2018-08-06 08:14] VITALS: BP 140/67; PULSE 104; RESP 16
[2018-08-06] MEDS: METOPROLOL (XL) 50 MG TAB PO SCH (08:41)
[2018-08-06] MEDS: OLANZAPINE 2.5 MG TAB PO SCH (08:41)
[2018-08-06] MEDS: AMLODIPINE 5 MG TAB PO SCH (08:42)
[2018-08-06] MEDS: INSULIN ASPART [NOVOLOG] 3 ML PEN SC SCH ×4 (08:42→20:42)
[2018-08-06] MEDS: FERROUS SULFATE (EC) 325 MG TAB PO SCH ×2 (08:42→20:35)
[2018-08-06] MEDS: LOSARTAN 50 MG TAB PO SCH (08:42)
[2018-08-06] MEDS: ESCITALOPRAM 10 MG TAB PO SCH (08:42)
[2018-08-06] MEDS ORDERED: INFLUENZA VIRUS VACCINE 0.5 ML (DISPENSING) IM* ONE (09:00)
[2018-08-06] MEDS ORDERED: HYDROCODONE/APAP (5/325) TAB PO PRN (10:30)
[2018-08-06 13:45] VITALS: BP 109/59; PULSE 79; RESP 16
[2018-08-06] MEDS: SOD CHLORIDE 0.45% 1,000 ML IV SCH (14:30)
[2018-08-06] MEDS: CEFTRIAXONE 1 GM/50 ML (PMX) 50 ML IVPB SCH (17:56)
[2018-08-06 19:23] VITALS: BP 131/60; PULSE 82; RESP 16
[2018-08-06] MEDS: FAMOTIDINE 20 MG TAB PO SCH (20:35)
[2018-08-07 02:05] VITALS: BP 154/70; PULSE 87; RESP 16
[2018-08-07] MEDS: ACCU-CHEK XX SCH (02:37)
[2018-08-07] MEDS: INSULIN ASPART [NOVOLOG] 3 ML PEN SC SCH ×4 (08:00→20:18)
[2018-08-07 08:04] VITALS: BP 172/70; PULSE 71; RESP 16
[2018-08-07] MEDS: METOPROLOL (XL) 50 MG TAB PO SCH (08:39)
[2018-08-07] MEDS: FERROUS SULFATE (EC) 325 MG TAB PO SCH ×2 (08:40→20:18)
[2018-08-07] MEDS: LOSARTAN 50 MG TAB PO SCH (08:40)
[2018-08-07] MEDS: AMLODIPINE 5 MG TAB PO SCH (08:40)
[2018-08-07] MEDS: ESCITALOPRAM 10 MG TAB PO SCH (08:40)
[2018-08-07] MEDS: OLANZAPINE 2.5 MG TAB PO SCH (09:21)
[2018-08-07] MEDS: SOD CHLORIDE 0.45% 1,000 ML IV SCH ×2 (10:30→15:46)
[2018-08-07] MEDS ORDERED: VANCOMYCIN IV PER PHARMACY XX SCH (10:30)
[2018-08-07 15:05] VITALS: BP 106/55; PULSE 63; RESP 16
[2018-08-07] MEDS: CEFTRIAXONE 1 GM/50 ML (PMX) 50 ML IVPB SCH (17:42)
[2018-08-07 19:17] VITALS: BP 91/51; PULSE 64; RESP 16
[2018-08-07] MEDS: FAMOTIDINE 20 MG TAB PO SCH (20:22)
[2018-08-07] MEDS: LORAZEPAM 2 MG INJ IV PRN (20:45)
[2018-08-08 02:11] VITALS: BP 165/72; PULSE 72; RESP 16
[2018-08-08] MEDS: ACCU-CHEK XX SCH (02:42)
[2018-08-08] MEDS: LORAZEPAM 2 MG INJ IV PRN (02:55)
[2018-08-08 03:23] VITALS: BP 132/72; PULSE 70
--- NOTE | 2018-08-08 07:17 | PN ---
DATE: 08/07/2018 Patient is alert and oriented x1, in no acute distress, very comfortable. The patient was admitted f or acute UTI, dehydration and acute renal failure and encephalopathy. [facility], the patient was started on IV antibiotic treatment, small cultured and started IV hydration. Today as I mentioned, patient is alert and oriented x1. She is generally confused, not oriented to place o r person. PHYSICAL EXAMINATION: VITAL SIGNS: Temperature is 97.5, blood pressure is 172/70, heart rate is 71 and respiratory rate 16 and saturating 98% on room air. REVIEW OF SYSTEMS: She denies of any complaints. Reviewed. She denies of any headache. She denies of any chest pain. She denies of any abdominal pain. She denies of any nausea, vomiting. Denies a ny hesitancy, urgency, pain much better today during urination. She denies of any new abnormalities. PHYSICAL EXAMINATION: VITAL SIGNS: As I mentioned above. GENERAL: Alert and oriented x1. HEENT: Normocephalic, atraumatic. Pupils are equal and reactive to light. Extraocular muscles are intact. Nares are clear, no obstruction, no deviation of septum. CHEST: AP contour is within normal limits. Breasts and nipples are normal, no nipple retraction. HEART: S1, S2, regular rate and rhythm with cardiomegaly. LUNGS: Clear to auscultations. No wheezes or crackles and no abnormalities over the lungs. ABDOMEN: Soft, positive bowel sounds, no hepatosplenomegaly, no masses palpable over the abdomen and no rebound tenderness. EXTREMITIES: No edema, clubbing or cyanosis of the extremities. NEUROLOGIC: Cranial nerves II through XII are completely intact. No focal deficits. LABORATORY DATA: Today CBC: White blood cells 10.6, hemoglobin is 11.2, hematocrit 33.9, platelet c ount is 394. Chemistry: Sodium is 136, potassium 4.3, BUN 25, creatinine 1.66 and BMP a little bit elevated. X-rays negative. Culture results urine culture results show strep agalactia group B. The patient is on Rocephin which is most probably good coverage for it. ADMITTING DIAGNOSIS AND FOLLOWUP DIAGNOSES: 1. Dehydration. 2. Acute renal failure. 3. Type 2 diabetes mellitus. 4. Encephalopathy. PLAN: We will continue IV antibiotic treatment and will possibly discharge to SNF tomorrow. We will keep Amaya catheter in because of urinary retention. Will discharge the patient to SNF tomorrow to [place] and continue IV antibiotics and try and discontinue Amaya catheter at the facility and m onitor for retention. Dictated By: RONDA MCALLISTER MD SB/NTS Conf#: [id number] DID#: [id number] CC: RONDA MCALLISTER MD;*EndCC*
[2018-08-08 07:35] VITALS: BP 137/75; PULSE 70; RESP 17
[2018-08-08] MEDS: INSULIN ASPART [NOVOLOG] 3 ML PEN SC SCH ×3 (08:59→17:34)
[2018-08-08] MEDS: METOPROLOL (XL) 50 MG TAB PO SCH ×2 (09:00→10:24)
[2018-08-08] MEDS: LOSARTAN 50 MG TAB PO SCH ×2 (09:00→10:25)
[2018-08-08] MEDS: FERROUS SULFATE (EC) 325 MG TAB PO SCH ×2 (09:00→10:23)
[2018-08-08] MEDS: OLANZAPINE 2.5 MG TAB PO SCH ×2 (09:00→10:24)
[2018-08-08] MEDS: AMLODIPINE 5 MG TAB PO SCH ×2 (09:00→10:24)
[2018-08-08] MEDS: ESCITALOPRAM 10 MG TAB PO SCH ×2 (09:00→10:23)
--- NOTE | 2018-08-08 13:14 | DS ---
DATE OF ADMISSION: 08/05/2018 DATE OF DISCHARGE: 08/08/2018 An 83-year-old female came in with acute encephalopathy, UTI, dehydration, acute renal failure, type 2 diabetes mellitus, uncontrolled, and degenerative joint disease. She was admitted, started on IV a ntibiotic treatment, IV hydration, tolerated the treatment well. She sundown's very frequently in th e evenings and gets very confused and agitated. She has urinary retention for which she has a Amaya catheter and today patient is very sleepy because she had a really tough night, very agitated and agg ressive. PHYSICAL EXAMINATION: VITAL SIGNS: Blood pressure is 137/75, heart rate 70, respiratory rate 17, and she is afebrile. HEART: S1, S2, regular rate and rhythm with mild cardiomegaly. LUNGS: Clear to auscultation, no wheezes or crackles. ABDOMEN: Soft, positive bowel sounds, no hepatosplenomegaly, no masses palpable over the abdomen. EXTREMITIES: No edema, clubbing or cyanosis of the extremities. Labs today mildly elevated white co unt, but that is secondary to stress, most probably her urine is positive for Streptococcus B galacti ca and she is on Rocephin for it. LABS: Chemistry is within normal limits. DIAGNOSES: 1. Urinary tract infection. 2. Encephalopathy. 3. Hypertension. 4. Degenerative joint disease. 5. Acute renal failure. 6. Urinary retention. The patient will be discharged today to care home facility with Amaya catheter. We will contin ue amoxicillin 500 q.8h. for 1 week at the facility and will try to get her off the Amaya catheter an d see if she will retain again or not. We will give the trial at the facility. Therefore, patient w ill be discharged today in stable condition to care home [facility], [place], per family remirlande jairo. Dictated By: RONDA MCALLISTER MD SB/CAMERON Conf#: [id number] DID#: [id number] CC: RONDA MCALLISTER MD;*EndCC*
[2018-08-08 14:34] VITALS: BP 121/63; RESP 16
[2018-08-08] MEDS: CEFTRIAXONE 1 GM/50 ML (PMX) 50 ML IVPB SCH (17:34)
[2018-08-08 19:45] VITALS: BP 156/66; PULSE 78; RESP 18
== END 2018-08-08 20:10 | DRG 683 ==
LOC: E/R 10:20 → 5EC 13:37
PROVIDERS: ADMIT Family Medicine; ATTEND Family Medicine
DX: N17.9 Acute kidney failure, unspecified (principal); N39.0 Urinary tract infection, site not specified; Z68.1 Body mass index [BMI] 19.9 or less, adult; G93.40 Encephalopathy, unspecified; E11.65 Type 2 diabetes mellitus with hyperglycemia; E86.0 Dehydration; N31.9 Neuromuscular dysfunction of bladder, unspecified; G30.9 Alzheimer's disease, unspecified; F02.80 Dementia in other diseases classified elsewhere, unspecified severity, without behavioral disturbance, psychotic disturbance, mood disturbance, and anxiety; I10 Essential (primary) hypertension; K21.9 Gastro-esophageal reflux disease without esophagitis; R26.89 Other abnormalities of gait and mobility; B95.1 Streptococcus, group B, as the cause of diseases classified elsewhere; M19.90 Unspecified osteoarthritis, unspecified site; Z79.4 Long term (current) use of insulin; Z79.02 Long term (current) use of antithrombotics/antiplatelets; Z91.81 History of falling
CPT/HCPCS: 36415; 70450; 71045; 80048; 80053; 81001; 82962; 83880; 84436; 84479; 84484; 85025; 87086; 87400; 90686; 93005; 96374; 97161; J0696; J1815; J2060; J7030